=== PATIENT | male | born 1995 | race Caucasian/White ===

== ENCOUNTER 2021-01-09 21:41 | Emergency (ER) | payer SELFPAY ==
--- NOTE | ~2021-01-09 | CT_ITS ---
EXAMINATION: CT BRAIN W/O DATE: 01/09/2021 23:52 INDICATION: Numbness TECHNIQUE: Computed tomography (CT) of the head was performed without intravenous contrast. The dose- length product was 605.33 mGy-cm. The mA was adjusted according to patient size. Iterative reconstruc tion technique was employed. COMPARISON: No prior studies for comparison. FINDINGS: Normal brain parenchymal volume for age. Normal echavarria-white differentiation. No acute intrac ranial hemorrhage, infarction, mass or mass effect. No ventriculomegaly or midline shift. Midline sagittal images demonstrate a normal corpus callosum, c raniovertebral junction and sella turcica. Basilar cisterns are patent. Paranasal sinuses and mastoids are pneumatized. No depressed skull fractures. IMPRESSION: 1. No acute intracranial abnormality. Reviewed, dictated and finalized at location A.
[2021-01-09 21:44] VITALS: BP 153/89; PULSE 91; RESP 18; TEMP 36.6; O2SAT 100
--- NOTE | 2021-01-09 23:37 | ED.GENADULT ---
HPI - General Adult General Chief complaint: Extremity Problem,Nontraumatic Stated complaint: feet numbness Time Seen by Provider: 01/09/21 23:27 Source: RN notes reviewed History of Present Illness HPI narrative: Patient presents to emergency department from home for numbness in bilateral feet. Patient states that symptoms again approximately 1 hour ago with a numbness and tingling sensation in the bilateral feet that does not go any higher than the feet states he has similar episode in the bilateral hands approximately 1 week ago he denies any fevers or chills vision changes chest pain shortness of breath bowel or bladder incontinence back pain or weakness to the extremities Related Data Allergies Allergy/AdvReac Type Severity Reaction Status Date / Time No Known Allergies Allergy Unverified 03/25/19 11:26 Review of Systems Review of Systems: Narrative: Gen.: Denies fevers or chills Eyes: Denies eye pain or visual change ENT: Denies congestion Respiratory: Denies shortness of breath or cough CV: Denies chest pain or palpitations GI: Denies abdominal pain nausea, emesis or diarrhea denies bowel or bladder incontinence Musculoskeletal: Denies back pain or muscle pain Neuro: See HPI Skin: Denies rash Except as documented, all other systems reviewed and negative [facility] Past Medical History Medical History (Updated 01/10/21 @ 01:20 by Alexander Nguyen DO) Patient denies significant medical history Social History Social History (Updated 01/09/21 @ 23:39 by Alexander Nguyen DO) Smoking status: Never smoker Exam Narrative: Exam Narrative: APPEARANCE: No acute distress, nontoxic, resting in bed HEENT: Normocephalic, atraumatic, OMM, EYES: PERRL, EOMI NECK: Supple, nontender, full range of motion without pain, no meningismus RESPIRATORY: No respiratory distress, clear to auscultation bilaterally with no rhonchi wheezing or rales CARDIOVASCULAR: RRR s murmur ABDOMINAL: Soft, nontender, nondistended MUSCULOSKELETAL: Moves all extremities. No clubbing, cyanosis or edema. NEURO: A and O ?4, following commands, speech normal, cranial nerves II through XII grossly intact,muscle strength 5 out of 5 bilateral upper and lower extremities equal pinprick sensation in the bilateral lower extremities equal in the bilateral feet up throughout the leg SKIN:: Warm, dry. Normal Color PSYCHIATRIC: Normal affect/mood Course Course Emergency Course: Discussed with patient results of workup and diagnosis. Discussed need for follow-up with primary care, proper use of medication, and reasons to return to the emergency department. Patient understands and agrees to current treatment plan Vital Signs Vital signs: Vital Signs Temperature 97.8 F 01/09/21 21:44 Pulse Rate 91 01/09/21 21:44 Respiratory Rate 18 01/09/21 21:44 Blood Pressure 153/89 H 01/09/21 21:44 Pulse Oximetry 100 01/09/21 21:44 Temperature 97.8 F 01/09/21 21:44 Pulse Rate 70 01/10/21 01:08 Respiratory Rate 18 01/10/21 01:08 Blood Pressure 145/92 H 01/10/21 01:08 Pulse Oximetry 100 01/10/21 01:08 Medical Decision Making Vital Signs Vital Signs: Vital Signs Temperature 97.8 F 01/09/21 21:44 Pulse Rate 91 01/09/21 21:44 Respiratory Rate 18 01/09/21 21:44 Blood Pressure 153/89 H 01/09/21 21:44 Pulse Oximetry 100 01/09/21 21:44 Temperature 97.8 F 01/09/21 21:44 Pulse Rate 70 01/10/21 01:08 Respiratory Rate 18 01/10/21 01:08 Blood Pressure 145/92 H 01/10/21 01:08 Pulse Oximetry 100 01/10/21 01:08 Lab Data Result diagrams: 01/10/21 00:35 01/10/21 00:35 Labs: Lab Results 01/10/21 01/10/21 01/10/21 Range/Units 00:03 00:35 00:35 WBC 6.3 (4.5-10.0) K/mm3 RBC 4.73 (4.6-6.20) M/mm3 Hgb 14.6 (14.0-18.0) g/dL Hct 41.7 L (42.0-52.0) % MCV 88.2 (80-100) fl MCH 30.9 (26-34) pg MCHC 35.0 (32-36) g/dl RDW 12.1 (11.5-14.5) % P
--- NOTE | 2021-01-09 23:49 | PC.NURSE ---
Patient taken to CT.
[2021-01-10 00:26] LABS: Magnesium 1.8 mg/dL (1.6-2.3)
[2021-01-10 00:42] LABS: Basophils Absolute Auto 0.1 K/mm3 (0.0-0.1); Eosinophils Absolute Auto 0.1 K/mm3 (0-0.3); Eosinophils Percent Auto 1.1 % (0-4.4); Hematocrit 41.7 % (42.0-52.0); Hemoglobin 14.6 g/dL (14.0-18.0); Immature Granulocyte Absolute 0.02 K/mm3 (0.00-0.031); Immature Granulocyte Percent A 0.3 % (0-0.5); Lymphocytes Absolute Auto 1.41 K/mm3 (0.9-3.2); Lymphocytes Percent Auto 22.5 % (18.3-44.2); Mean Corpuscular Hemoglobin 30.9 pg (26-34); Mean Corpuscular Volume 88.2 fl (80-100); Monocytes Absolute Auto 0.6 K/mm3 (0.1-0.6); Neutrophils Absolute Auto 4.1 K/mm3 (1.3-6.7); Neutrophils Percent Auto 65.1 % (45.5-73.1); Platelet Count Result 259 k/mm3 (150-375); Red Blood Count 4.73 M/mm3 (4.6-6.20); Red Cell Distribution Width 12.1 % (11.5-14.5); White Blood Count 6.3 K/mm3 (4.5-10.0)
[2021-01-10 00:54] LABS: Alanine Aminotransferase 27 U/L (4-50); Albumin Level 4.4 g/dL (3.5-5.1); Alkaline Phosphatase 47 U/L (38-126); Anion Gap 7 mmol/L (8-16); Aspartate Amino Transferase 31 U/L (17-59); Bilirubin,Total 0.6 mg/dL (0.2-1.3); Blood Urea Nitrogen 17 mg/dL (9-20); Calcium 9.4 mg/dL (8.4-10.2); Carbon Dioxide 28 mmol/L (22-30); Chloride 101 mmol/L (98-107); Estimated CRCL calculation 81 ml/min; Estimated Glomerular Filt Rate > 60; Glucose 93 mg/dL (75-110); Potassium 3.9 mmol/L (3.4-5.0); Sodium 136 mmol/L (137-145)
[2021-01-10 01:08] VITALS: BP 145/92; PULSE 70; RESP 18; O2SAT 100
== END 2021-01-10 01:32 | disposition home or self-care (01) ==
PROVIDERS: Emergency Provider Emergency Medicine
DX: R20.2 Paresthesia of skin (principal)
CPT/HCPCS: 36415; 70450; 80053; 83735; 84443; 85025; 99284